=== PATIENT | male | born 1970 | race Caucasian/White ===

== ENCOUNTER 2020-04-21 09:42 | Emergency (ER) | payer BC ==
[2020-04-21] MEDS ORDERED: Clindamycin HCl 150 MG Cap PO ONE ×2 (09:43→10:09)
[2020-04-21] MEDS ORDERED: Acetaminophen/Codeine 300-30 MG Tab PO ONE ×2 (09:43→10:09)
[2020-04-21] MEDS ORDERED: Lidocaine 2% Viscous Solution 15 ML Cup PO ONE (10:09)
--- NOTE | 2020-04-21 10:16 | EDM.PDOC ---
Scribed by Jada Jimenez 04/21/20 1016 Trev Fernandez MD ED HPI GENERAL MEDICAL PROBLEM - General Chief Complaint: General Stated Complaint: PT STATES ABSCESS TOOTH UPPER RIGHT Time Seen by Provider: 04/21/20 10:05 Source of Information: Reports: Patient, RN, RN Notes Reviewed History Limitations: Reports: No Limitations - History of Present Illness INITIAL COMMENTS - FREE TEXT/NARRATIVE: Patient presents to ER by POV with a dental abscess on a right upper tooth. Chronic dental decay. Onset: Gradual Duration: Constant Location: Reports: Other (tooth) Quality: Reports: Ache Severity: Moderate Improves with: Reports: None Worsens with: Reports: None Associated Symptoms: Reports: No Other Symptoms Treatments SAFETY AIDE: Reports: Acetaminophen, NSAIDS Oral/Mouth Pain Score (Numeric/FACES): 5 - Related Data Allergies Allergy/AdvReac Type Severity Reaction Status Date / Time No Known Allergies Allergy Verified 04/21/20 10:03 Home Meds: Home Meds Pantoprazole Sodium [Protonix] 40 mg PO DAILY 04/21/20 [History] Past Medical History HEENT History: Reports: Other (See Below) (Dental decay) Gastrointestinal History: Reports: GERD Social & Family History - Family History Family Medical History: Noncontributory - Living Situation & Occupation Occupation: Employed ED ROS GENERAL - Review of Systems Review Of Systems: Comprehensive ROS is negative, except as noted in HPI. ED EXAM, GENERAL - Physical Exam Exam: See Below Exam Limited By: No Limitations General Appearance: Alert, WD/WN, No Apparent Distress Eye Exam: Bilateral Eye: Normal Inspection Ears: Normal External Exam Nose: Normal Inspection Throat/Mouth: Normal Lips, Normal Oropharynx, Normal Voice, No Airway Compromise, Other (chronic extensive dental decay with dental abscess at right maxillary molar, mild facial swelling without erythema or increased warmth.) Head: Atraumatic, Normocephalic Neck: Normal Inspection Respiratory/Chest: No Respiratory Distress Cardiovascular: Normal Peripheral Pulses Course - Vital Signs Last Recorded V/S: Last Vital Signs Temp 98.5 F 04/21/20 10:08 Pulse 70 04/21/20 10:08 Resp 18 04/21/20 10:08 BP 167/86 H 04/21/20 10:08 Pulse Ox 98 04/21/20 10:08 - Orders/Labs/Meds Meds: Medications Discontinued Medications Generic Name Dose Route Start Last Admin Trade Name Riky PRN Reason Stop Dose Admin Acetaminophen/Codeine Phosphate 2 tab 04/21/20 10:09 Tylenol With Codeine No.3 300mg/30mg PO 04/21/20 10:10 ONETIME ONE Clindamycin HCl 300 mg 04/21/20 10:09 Cleocin PO 04/21/20 10:10 ONETIME ONE Lidocaine HCl 15 ml 04/21/20 10:09 Xylocaine 2% Viscous PO 04/21/20 10:10 ONETIME ONE Departure - Departure Time of Disposition: 10:15 Disposition: Home, Self-Care 01 Condition: Good Clinical Impression: Dental abscess, Dental decay - Discharge Information *PRESCRIPTION DRUG MONITORING PROGRAM REVIEWED*: Not Applicable *COPY OF PRESCRIPTION DRUG MONITORING REPORT IN PATIENT RODGER: Not Applicable Instructions: Dental Abscess Forms: ED Department Discharge Additional Instructions: Rx: Clindamycin 300mg Rx: Viscous Lidocaine 2% Rx: Tylenol No. 3 Follow up with dentist on Thursday, April 23. Sepsis Event Note (ED) - Focused Exam Vital Signs: Vital Signs Temp Pulse Resp BP Pulse Ox 04/21/20 10:08 98.5 F 70 18 167/86 H 98 I have read and agree with the documentation that has been completed regarding this visit. By signing this record, I attest that the documentation was completed in my physical presence and is an accurate record of the encounter.
[2020-04-21] MEDS ORDERED: Acetaminophen/Codeine 300-30 MG Tab ONE (10:17)
[2020-04-21] MEDS ORDERED: Clindamycin HCl 150 MG Cap ONE (10:17)
== END 2020-04-21 10:32 | disposition home or self-care (01) ==
LOC: DL.ED 09:42
DX: K04.7 Periapical abscess without sinus (principal); K02.9 Dental caries, unspecified; K21.9 Gastro-esophageal reflux disease without esophagitis; Z79.899 Other long term (current) drug therapy
CPT/HCPCS: 99282; A9270; 99283